=== PATIENT | male | born 1985 | race Caucasian/White ===

== ENCOUNTER 2016-10-03 20:11 | Emergency (ER) | payer OTHER ==
[~2016-10-03] VITALS: Ht 193 cm; Wt 102.1 kg
[2016-10-03 20:28] VITALS: BP 140/90
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
== END 2016-10-03 21:32 | disposition home or self-care (01) ==
LOC: ER 20:11
DX: Z77.21 Contact with and (suspected) exposure to potentially hazardous body fluids (principal); K12.0 Recurrent oral aphthae
CPT/HCPCS: 99281